=== PATIENT | female | born 1930 | race Two or more races ===

== ENCOUNTER 2020-08-26 15:15 | Inpatient (IN) | payer OTHER ==
[~2020-08-26] VITALS: Ht 152.4 cm; Wt 65.3 kg
[2020-08-26] MEDS ORDERED: TEMAZEPAM (16:39)
--- NOTE | 2020-08-26 16:39 | NUR ---
PTE SE RECIBE POR DOLOR DE PECHO Y DOLOR EN EL COSTADO DERECHO REFIERE PTE.
--- NOTE | 2020-08-26 17:36 | NUR ---
EVALUA PTE. SE EDUCA A PTE SOBRE TX MEDICO. PTE REFIERE COMPRENDER. SE REALIZAN MUESTRAS DE LABORATORIO BAJO MEDIDAS ASEPTICAS. SE NOTIFICAN DANIEL X. PENDIENTE RE-EVALUACION MEDICA.
--- NOTE | 2020-08-27 01:07 | NUR ---
SE COLECTAN TUBOS PILOTOS PARA 2 U D EPRBC FRACCIONADAS, SE NOTIFICA A MS GAITAN PARA RECOGER TUBOS PILOTOS Y TYPE & GROUP EN LABORATORIO. PTE FIRMA CONSENTIMIENTO PARA TRASNFUSION.
--- NOTE | 2020-08-27 07:00 | NUR ---
SE RECIBE PACIENTE FEMENINA ALERTA Y ORIENTADA CON BARANDAS ELEVADAS. AREA DE VENOPUNCION PATENTE DERIC DE EDEMA Y ENROJECIMIENTO EN ANTEBRAZO CHIP. PENDIENTE CONSULTA CON DR. DIEHL Y 2 UNIDADES DE PRBC FRACCIONADAS. SE LE RAHUL EN TODO MOMENTO SEGURIDAD Y PRIVACIDAD EN TODO MOMENTO.
--- NOTE | 2020-08-27 09:50 | NUR ---
SE COMUNICA CON [facility]IA TELEFONICA, PARA CONOCER ESTADO DE REQUISICION PREVIA DE 2 UNIDADES PRBC FRACCIONADAS. REFIEREN QUE LA REQUISICION SE ENCUENTRA LISTA Y QUE ESTAN EN ESPERA DE UN DESPACHADOR PARA TRAER LAS UNIDADES. SE MANTIENE PACIENTE EN OBSERVACION POR CAMBIOS EN CHARLES CONDICION.
[2020-08-27] MEDS ORDERED: AMLODIPINE BESYL5 MG (15:30)
[2020-08-27] MEDS ORDERED: GLIMEPIRIDE4 M1 (15:30)
[2020-08-27] MEDS ORDERED: METFORMIN HCL500 M4 (15:30)
[2020-08-27] MEDS ORDERED: VASOTEC20 MG (15:30)
[2020-08-27] MEDS ORDERED: CLONAZEPAM0.5 MG (15:30)
[2020-08-27] MEDS ORDERED: HUMULIN N100 UNIT/2 (15:30)
[2020-08-27] MEDS ORDERED: RESTORIL30 MG (15:30)
[2020-08-27] MEDS ORDERED: TRIDESILON60 GM (15:31)
[2020-08-27] MEDS ORDERED: DICLOFENAC SODI75 MG (15:31)
== END 2020-08-31 17:33 | disposition home or self-care (01) | DRG 391 ==
LOC: ER 15:15 → MEDI 08-27 14:27 → MEDJ 08-27 14:27
PROVIDERS: ADMIT Internal Medicine; ATTEND Internal Medicine
PROC: BW21ZZZ Computerized Tomography (CT Scan) of Abdomen and Pelvis (ICD-10-PCS; 2020-08-26)
PROC: 30233N1 Transfusion of Nonautologous Red Blood Cells into Peripheral Vein, Percutaneous Approach (ICD-10-PCS; 2020-08-27)
PROC: B24BYZZ Ultrasonography of Heart with Aorta using Other Contrast (ICD-10-PCS; 2020-08-27)
PROC: 0DJ08ZZ Inspection of Upper Intestinal Tract, Via Natural or Artificial Opening Endoscopic (ICD-10-PCS; principal; 2020-08-30)
DX: K29.90 Gastroduodenitis, unspecified, without bleeding (principal); K57.31 Diverticulosis of large intestine without perforation or abscess with bleeding; K92.1 Melena; D50.0 Iron deficiency anemia secondary to blood loss (chronic); K20.90 Esophagitis, unspecified without bleeding; K44.9 Diaphragmatic hernia without obstruction or gangrene; R63.0 Anorexia; I10 Essential (primary) hypertension; E11.9 Type 2 diabetes mellitus without complications